=== PATIENT | female | born 1965 | race Caucasian/White ===

== ENCOUNTER 2018-07-31 18:57 | Emergency (ER) | payer MEDICAID, SELFPAY ==
[2018-07-31 19:02] VITALS: BP 142/83; PULSE 69; RESP 16; TEMP 36.7; O2SAT 100
--- NOTE | 2018-07-31 19:29 | W.ED.GENAD ---
Discharge Plan Disposition Patient Disposition: HOME Condition: Stable Discharge Details Chief Complaint: Nk/Back Pain Clinical Impression: Lumbago Primary Care Provider: SARA ONEILL ED Provider: Alli Sanchez Home Meds and New Rx's Prescriptions: New cyclobenzaprine 10 mg tablet 10 mg PO TID Qty: 14 RF: 0 lidocaine [Lidoderm] 1 PATCH patch 1 patch Topical Q24H Qty: 4 RF: 0 No Action ibuprofen 200 MG tablet 600 mg PO PRNRF: 0 Discharge Instructions Instructions: Low Back Strain (ED) Additional Instructions: Please take a maximum of 1000 mg of Tylenol and 600 mg of ibuprofen every 6 hours. Please use a heating pad on your back as often as possible. Please take the Flexeril and a Lidoderm patch as directed. If you notice any worsening of your symptoms, or any new symptoms such as vomiting, diarrhea, fever, chills, shortness of breath, chest pain, numbness, weakness, or fainting , please return immediately to the emergency department for reevaluation. Please follow up with your primary care provider as soon as possible for reassessment and reevaluation. As always, it was a pleasure participating in your medical care today. Stand Alone Forms: Work Release Referrals: SARA ONEILL [Primary Care Provider] - Discharge Data Discharge Date/Time-TO BE ENTERED AT DEPARTURE: 07/31/18 19:50 Medical Decision Making This is a very pleasant 52-year-old female who presents today for evaluation of left lower back pain. It is come on gradually after a day or 2 of lifting and multiple episodes of bending over. It is located in the left lower lumbar region. No concerning red flags of IV drug use, fever, bowel or bladder incontinence, saddle anesthesia, dysuria, hematuria or increase in urinary frequency. Strength and pulses as well as neurologic exam is intact in all extremities. Signs and symptoms clinically inconsistent with dissection, cord compression, or kidney stone. Pain is notably improved with Aleve. Signs and symptoms at this time are clinically consistent with left lower muscle back sprain, we will recommend Flexeril, Lidoderm patch, continue Tylenol and Motrin, and heating pad. We discussed pertinent red flags for which to immediately return and the importance of close follow-up with PCP. I have extensively reviewed the treatment plan and discharge instructions with the patient and their family. I have addressed all patient concerns at this time. The patient and family was made aware of what symptoms to monitor for that would warrant a return to the emergency department. Discussed the plan with the patient and family, they demonstrate verbal understanding and agreement with our assessment and plan at this time. HPI General Date/Time Provider Initiated Documentation: 07/31/18 19:10. HPI Narrative: This is a pleasant 52-year-old female with no sign of significant past medical history who presents today for evaluation of left lower back pain. She states that over the last 2 days she has been lifting and doing a lot of bending over, when she woke up this morning she noticed some mild soreness and stiffness in her back, however throughout the day this is notably worsened. Pain is located in the left lower lumbar region. There is no flank pain or radiation to the anterior groin. She denies any pain extending up the back, or down the legs. She denies any associated numbness, tingling, or weakness. She denies any bowel or bladder incontinence or saddle anesthesia. She denies any chest pain, cough, tearing sensation, headache, fever or chills. She denies any IV or illicit drug use. She does have a history of kidney stones in the past and states this feels nothing like the nature or severity of her kidney stones in the past. She denies any dysuria, hematuria, or increase in urinary frequency. She has no other complaints at this time. She has taken Aleve and has noted that this is significantly improved her symptoms. No other modifying factors. She denies any pertinent family history. Related Data Home Medications Medication Instructions Recorded Confirmed ibuprofen 600 mg PO PRN 12/18/15 cyclobenzaprine 10 mg PO TID #14 tab 07/31/18 lidocaine [Lidoderm] 1 patch TOPICAL Q24H #4 patch 07/31/18 Previous Rx's Medication Instructions Recorded cyclobenzaprine 10 mg PO TID #14 tab 07/31/18 lidocaine [Lidoderm] 1 patch TOPICAL Q24H #4 patch 07/31/18 Allergies Allergy/AdvReac Type Severity Reaction Status Date / Time No Known Allergies Allergy Unverified 07/31/18 19:10 General Stated Complaint: Nk/Back Pain ALISHA: 4 Review of Systems Review of Systems All systems reviewed & are unremarkable except as noted in HPI and below PFSH Social History Smoking/Tobacco Use Status: Current every day Tobacco Type: cigarettes Alcohol Intake: never Drug use: Occasionally Substance use type: marijuana Do you feel safe at home: Yes Do you feel safe in your relationship?: Yes Exam Narrative Exam Narrative: 1.Const: Well-nourished, Well-developed, appearing stated age 2.Eyes: PERRL, no conjunctival injection, and symmetrical lids. 3.ENT: Atraumatic external nose and ears. Moist MM. Neck: Symmetric, trachea midline, No thyromegaly. 4.CVS: +S1/S2, No murmurs or gallops. Peripheral pulses 2+ and equal in all extremities. Brisk capillary refill in all extremities. Dorsalis pedis, posterior tibial, and radial pulses +2 in all extremities 5.RESP: Unlabored respiratory effort. Clear to auscultation bilaterally. No wheezes rales or rhonchi 6.GI: Soft, Nontender/Nondistended, No hepatosplenomegaly. No guarding or rebound. 7.MSK: Normocephalic/Atraumatic, Extremities w/o deformity or ttp No cyanosis or clubbing, Normal movement of all extremities. No midline tenderness to palpation over the CTLS spine. Notable reproducible tenderness on palpation of the left paraspinal lumbar region, as well as mild reproducible tenderness over the left SI joint. Negative straight leg raise. Notable paraspinal spasms bilaterally worse on the left than the right, primarily focused in the lumbar region. Normal ROM in flexion, extension, side bend, and rotation. Patient has +5 out of 5 strength in the lower extremities in dorsiflexion and plantarflexion, knee flexion and extension, hip flexion and extension. There is +2 over 2 dorsalis pedis pulses bilaterally. There is normal sensation to the skin with light touch at the foot, knee, and hip. Normal saddle sensation. Good sensation over the deep sural nerve area bilaterally. Rectal exam deferred. Reflexes are +2 over 4 in the patellar reflex bilaterally. +5 out of 5 strength in the medial, ulnar, radial nerve distribution bilaterally in the hands as well as intact light touch sensation to these dermatomes on the hands 8.Skin: Warm, Dry. No rashes or lesions. 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 Sensation grossly intact, no focal neurologic deficits. All 6 cardinal planes of vision are fully intact. No evidence of rotatory or vertical nystagmus. The patient demonstrated a normal [id number], good dexterity. There was no evidence of dysdiadochokinesia. Patient was able to ambulate without difficulty. There was no wide-based gait. Romberg, and gwjg-ar-[id number] are both normal on testing. Sensation was intact bilaterally as well as muscle strength bilaterally for all extremities. Patient was able to verbalize butter cup with no slurring, or miss pronunciation. 10.Psych: (AAO) x3. Appropriate mood and affect Course Vital Signs Temperature 36.7 C 07/31/18 19:02 Pulse 69 07/31/18 19:02 Respiratory Rate 16 07/31/18 19:02 Blood Pressure 142/83 H 07/31/18 19:02 Pulse Oximetry 100 07/31/18 19:02 Temperature 36.7 C 07/31/18 19:02 Temperature Source Temporal Artery Scan 07/31/18 19:02 Pulse 69 07/31/18 19:02 Respiratory Rate 16 07/31/18 19:02 Respiratory Effort 07/31/18 19:02 Blood Pressure 142/83 H 07/31/18 19:02 Pulse Oximetry 100 07/31/18 19:02 Oxygen Delivery Method Room Air 07/31/18 19:02 Oxygen Flow Rate 0 07/31/18 19:02 Pain Level 6 07/31/18 19:06
[2018-07-31] MEDS: Lidocaine 5% Patch 1 PATCH TP (19:32)
== END 2018-07-31 19:50 | disposition home or self-care (01) ==
LOC: ER 19:47
PROVIDERS: Emergency Provider Student in an Organized Health Care Education/Training Program; PCP Family Medicine
DX: M54.5 Low back pain (principal)
CPT/HCPCS: 99283

== ENCOUNTER 2018-10-03 10:01 | Outpatient (REF) | payer MEDICAID, SELFPAY ==
[2018-10-03 20:24] LABS: Cholesterol 214 mg/dL (50-200); Glucose 85 mg/dL (70-100); HDL Cholesterol 49 mg/dL (40-60); LDL CHOLESTEROL 142 mg/dL (<100); TSH 1.44 uIU/mL (0.358-3.74); Triglyceride 66 mg/dL (30-150)
[2018-10-06 14:23] LABS: Hepatitis C Ab w Rflx HCV PCR Negative (NEGAT)
== END 2018-10-03 10:21 ==
LOC: NCHCN 10:01
PROVIDERS: PCP Family Medicine; Visit Provider Nurse Practitioner Family
DX: R63.4 Abnormal weight loss (principal); Z11.59 Encounter for screening for other viral diseases; Z13.220 Encounter for screening for lipoid disorders
CPT/HCPCS: 80061; 82947; 83721; 86803; 84443

== ENCOUNTER 2019-04-27 12:29 | Outpatient (REF) | payer MEDICAID, SELFPAY ==
[2019-04-27 19:04] LABS: Iron 88 ug/dL (50-170)
[2019-04-27 19:28] LABS: Anion Gap 10.6 mmol/L (3-11); BUN 10 mg/dL (7-18); CO2 26.4 mmol/L (21.0-32.0); CREATININE 0.71 mg/dL (0.55-1.02); Calcium 8.6 mg/dL (8.5-10.1); Chloride 107 mmol/L (98-107); Ferritin 128 ng/mL (8-252); Glucose 88 mg/dL (74-106); Magnesium 1.7 mg/dL (1.8-2.4); Sodium 144 mmol/L (136-145); Vitamin B12 341 pg/mL (193-986)
== END 2019-04-27 12:49 ==
LOC: NCHCN 12:29
PROVIDERS: PCP Family Medicine; Visit Provider Nurse Practitioner Family
DX: M25.50 Pain in unspecified joint (principal)
CPT/HCPCS: 80048; 82607; 82728; 83540; 83735

== ENCOUNTER 2020-10-04 18:09 | Outpatient (REF) | payer MEDICAID, SELFPAY ==
[2020-10-06 13:31] LABS: COVID-19 RT-PCR UVMMC Result Negative (Negative)
== END 2020-10-04 18:10 | disposition home or self-care (01) ==
LOC: NCHCN 18:09
PROVIDERS: PCP Family Medicine; Visit Provider Internal Medicine
DX: Z20.822 Contact with and (suspected) exposure to COVID-19 (principal)
CPT/HCPCS: U0003

== ENCOUNTER 2021-08-16 09:43 | Outpatient (REF) | payer MEDICAID, SELFPAY ==
[2021-08-16 20:30] LABS: Bilirubin Negative (Negative); Blood Negative (Negative); Clarity Cloudy (Clear); Glucose Negative (Negative); Ketones Negative (Negative); Leukocyte Esterase Negative (Negative); Nitrite Negative (Negative); Specific Gravity 1.025 (1.005-1.025)
[2021-08-18 15:27] LABS: Chlamydia Result Negative (Negative); GC Result Negative (Negative)
== END 2021-08-16 09:44 | disposition home or self-care (01) ==
LOC: NCHCN 09:43
PROVIDERS: PCP Physician Assistant; Visit Provider Nurse Practitioner Family
DX: R31.9 Hematuria, unspecified (principal); N89.8 Other specified noninflammatory disorders of vagina
CPT/HCPCS: 87491; 87591; 81003; 87480; 87510; 87660

== ENCOUNTER → 2022-01-23 00:56 | Outpatient (CLI) | payer MEDICAID, SELFPAY ==
--- NOTE | 2022-01-23 08:30 | DI.MRI_ITS ---
Exam(s) MR LUMBAR SPINE WO EXAM: MR LUMBAR SPINE WO CLINICAL HISTORY: CHRONIC LUMBAR BACK PAIN, M54.5; LS RADICULOPATHY, M54.17; ABNL MRI, R93.89. TECHNIQUE: Multiplanar multisequence MRI of the Lumbar spine was performed. COMPARISON: DX XR LS SPINE 2-3 VIEWS from 10/21/2018 FINDINGS: Conus medullaris is at normal level. There is no evidence of conus mass nor subjacent clumping of in trathecal nerve roots to suggest arachnoiditis. The distal thecal sac appears unremarkable.There is no evidence of Tarlov intrasacral cysts nor other significant findings within the sacral canal Bones:There are no fractures nor ominous osseous lesions in the lumbar vertebral bodies and visualize d sacrum. Benign intraosseous hemangiomas are noted in T10 and T12. With respect to the individual levels... T12-L1: Unremarkable L1-2: Normal disc height and signal. No disc herniation nor central canal stenosis.No foraminal steno sis L2-3: Normal disc height. There is a posterolateral left disc herniation at this level which extends posteriorly 4 millimeters and is approximately 1 cm wide. This indents the anterior left side of the thecal sac at this level at the lateral recess. However, this disc protrusion does not extend appre ciably into the ipsilateral exiting left neural foramen. Right neural foramen is clear.No foraminal stenosis.Osseous central canal dimensions are within normal limits. No facet arthropathy evident. L3-4: Normal disc height. Mild central annular bulging without a significant disc herniation. No ce ntral canal stenosis.No foraminal stenosis.No facet arthropathy. L4-5: Normal disc height and signal. No disc herniation nor central canal stenosis. No foraminal st enosis. No facet arthropathy. L5-S1: Normal disc height and signal. No disc herniation. No central canal stenosis. No foraminal stenosis. No facet arthropathy. Soft tissues: paraspinal soft tissues appear unremarkable. IMPRESSION: 1. The main finding here is posterolateral left disc protrusion at L2-3 level as described above. O ccupies the left lateral recess. This indents the anterior left side of the thecal sac at this level . Does not appear to extend appreciably into the exiting left neural foramen. No obvious foraminal stenosis. No facet arthropathy. 2. Benign intraosseous hemangiomas noted anteriorly at T10 and T12. Also L3. No ominous osseous les ions. No compression fractures. DATA REPOSITORY:
== END ==
PROVIDERS: PCP Physician Assistant; Visit Provider Nurse Practitioner Family
DX: M51.26 Other intervertebral disc displacement, lumbar region (principal); D18.09 Hemangioma of other sites
CPT/HCPCS: 72148

== ENCOUNTER 2022-01-29 11:18 | Outpatient (REF) | payer MEDICAID, SELFPAY ==
[2022-01-29 15:17] LABS: Abs Immature Grans 0.07 10^3/uL (0.0-0.06); Absolute Basophil Count 0.09 10^3/uL (0.0-0.2); Absolute Eosinophil Count 0.21 10^3/uL (0.0-0.7); Absolute Lymphocyte Count 4.13 10^3/uL (1.2-3.4); Absolute Monocyte Count 0.91 10^3/uL (0.1-0.8); Basophils % 0.8; Eosinophils % 1.8; HGB 15.6 g/dL (11.2-15.7); Immature Grans % 0.6; Lymphocytes % 35.6; MCH 30.5 pg (27.0-33.0); MCHC 33.2 % (32.0-36.0); MCV 92 fL (80-95); MPV 9.1 fL (8.0-11.0); Monocytes % 7.8; Neutrophils % 53.4; Platelet Count 481 10^3/uL (130-400); RBC 5.11 10^6/uL (3.93-5.22); RDW 13.3 % (11.7-14.6); RDW-SD 45.3 fL; WBC 11.61 10^3/uL (4.4-10.8)
[2022-01-29 16:01] LABS: ALT 28 U/L (14-59); AST 18 U/L (15-37); Albumin 4.5 g/dL (3.4-5.0); Alkaline Phosphatase 91 U/L (46-116); BUN 13 mg/dL (7-18); Bilirubin, Total 0.4 mg/dL (0.2-1.0); CREATININE 0.8 mg/dL (0.55-1.02); Calcium 9.3 mg/dL (8.5-10.1); Calculated LDL 166 mg/dL (<100); Chloride 105 mmol/L (98-107); Cholesterol 254 mg/dL (<200); Glucose 89 mg/dL (74-106); HDL Cholesterol 67 mg/dL (40-60); Potassium 4.3 mmol/L (3.5-5.1); Sodium 142 mmol/L (136-145); TSH (W/Ref FT4) 1.69 uIU/mL (0.36-3.74); Total Protein 7.8 g/dL (6.4-8.2); Triglyceride 109 mg/dL (<150)
== END 2022-01-29 11:19 | disposition home or self-care (01) ==
LOC: NCHCN 11:18
PROVIDERS: PCP Physician Assistant; Visit Provider Nurse Practitioner Family
DX: Z13.220 Encounter for screening for lipoid disorders (principal); R63.4 Abnormal weight loss
CPT/HCPCS: 80053; 80061; 84443; 85025

== ENCOUNTER → 2022-02-27 01:33 | Outpatient (CLI) | payer MEDICAID, SELFPAY ==
--- NOTE | 2022-02-27 08:43 | DI.MAMMO_ITS ---
Exam(s) MAMMO SCREENING EXAM: MAMMO SCREENING CLINICAL HISTORY: SCREENING, Z12.39. TECHNIQUE: Bilateral full field digital CC and MLO mammographic images were obtained with 3D tomosyn thesis and utilizing computer aided detection (CAD). COMPARISON: Prior outside mammograms were reviewed. Most recent being August 2020. FINDINGS: There has been no significant change in the appearance and distribution of the fibroglandular tissue. There are no new spiculated masses nor malignant appearing microcalcification groups. There is no significant architectural distortion nor skin thickening-retraction. IMPRESSION: No radiographic evidence of malignancy. BI-RADS Category 1 - Negative Breast Density - Category B - Scattered areas of fibroglandular density Breast density Category C or D implies that the patient has dense breast tissue. Dense breast tissue can make it harder to find cancer on a mammogram. Dense breast tissue is also associated with an incr eased risk of breast cancer. This information about the result of the mammogram report was provided to the patient to raise their awareness. Use this report when you speak with the patient about their risks for breast cancer, which includes their family history. At that time, you may recommend additional screening tests (Ultrasoun d or MRI) as these tests may add significant information. A negative radiographic report should not delay biopsy if a dominant or clinically suspicious mass is present. Up to ten percent of cancers are not identified on mammography. A negative report may reinforce clinical impression. Adenosis and dense breasts may obscure an underlying neoplasm. False positive reports average 6 to 10%. Patient will receive a letter notifying them of these results.
== END ==
PROVIDERS: PCP Physician Assistant; Visit Provider Nurse Practitioner Family
DX: Z12.31 Encounter for screening mammogram for malignant neoplasm of breast (principal)
CPT/HCPCS: 77063; 77067

== ENCOUNTER 2022-02-27 18:05 | Outpatient (REF) | payer MEDICAID, SELFPAY ==
[2022-02-27 18:13] LABS: Abs Immature Grans 0.05 10^3/uL (0.0-0.06); Absolute Basophil Count 0.07 10^3/uL (0.0-0.2); Absolute Eosinophil Count 0.17 10^3/uL (0.0-0.7); Absolute Lymphocyte Count 3.77 10^3/uL (1.2-3.4); Absolute Monocyte Count 0.99 10^3/uL (0.1-0.8); Absolute Neutrophil Count 5.21 10^3/uL (1.2-6.7); Basophils % 0.7; Eosinophils % 1.7; HCT 43.9 % (36.0-46.0); HGB 14.9 g/dL (11.2-15.7); Immature Grans % 0.5; Lymphocytes % 36.7; MCH 30.7 pg (27.0-33.0); MCHC 33.9 % (32.0-36.0); MCV 90 fL (80-95); MPV 9.9 fL (8.0-11.0); Monocytes % 9.6; Neutrophils % 50.8; Platelet Count 442 10^3/uL (130-400); RBC 4.86 10^6/uL (3.93-5.22); RDW 13.6 % (11.7-14.6); RDW-SD 45.5 fL; WBC 10.26 10^3/uL (4.4-10.8)
== END 2022-02-27 18:06 | disposition home or self-care (01) ==
LOC: NCHCN 18:05
PROVIDERS: PCP Physician Assistant; Visit Provider Nurse Practitioner Family
DX: R63.4 Abnormal weight loss (principal); J32.9 Chronic sinusitis, unspecified
CPT/HCPCS: 85025

== ENCOUNTER 2022-08-20 15:20 | Outpatient (REF) | payer MEDICAID, SELFPAY ==
[2022-08-22 11:08] LABS: Varicella IgG Antibody Positive (See Note)
== END 2022-08-20 15:21 | disposition home or self-care (01) ==
LOC: NCHCN 15:20
PROVIDERS: PCP Physician Assistant; Visit Provider Nurse Practitioner Family
DX: R21 Rash and other nonspecific skin eruption (principal); R23.8 Other skin changes
CPT/HCPCS: 86787

== ENCOUNTER 2023-07-24 16:10 | Outpatient (REF) | payer MEDICAID, SELFPAY ==
[2023-07-24 19:25] LABS: HCT 42.9 % (36.0-46.0); HGB 14.6 g/dL (11.2-15.7); MCH 30.5 pg (27.0-33.0); MCV 90 fL (80-95); MPV 8.9 fL (8.0-11.0); Platelet Count 493 10^3/uL (130-400); RBC 4.79 10^6/uL (3.93-5.22); RDW 12.9 % (11.7-14.6); RDW-SD 42.8 fL; WBC 11.36 10^3/uL (4.4-10.8)
[2023-07-24 19:53] LABS: Iron 76 ug/dL (50-170); Total Iron Binding Capacity 299 ug/dL (250-450); Transferrin Sat 25 % (15-50)
[2023-07-24 20:20] LABS: ALT 19 U/L (14-59); AST 14 U/L (15-37); Alkaline Phosphatase 82 U/L (46-116); Anion Gap 12.9 mmol/L (3-11); BUN 12 mg/dL (7-18); Bilirubin, Total 0.3 mg/dL (0.2-1.0); CO2 23.1 mmol/L (21.0-32.0); CREATININE 0.7 mg/dL (0.55-1.02); Calcium 9.2 mg/dL (8.5-10.1); Chloride 108 mmol/L (98-107); Estimated GFR 102.07 (mL/min/1.73m2); Ferritin 112 ng/mL (8-252); Glucose 93 mg/dL (74-106); Potassium 4.1 mmol/L (3.5-5.1); Sodium 144 mmol/L (136-145); TSH (W/Ref FT4) 1.34 uIU/mL (0.36-3.74); Total Protein 6.8 g/dL (6.4-8.2)
== END 2023-07-24 16:11 | disposition home or self-care (01) ==
LOC: NCHCN 16:10
PROVIDERS: PCP Nurse Practitioner Family; Visit Provider Nurse Practitioner Family
DX: R55 Syncope and collapse (principal)
CPT/HCPCS: 80053; 85027; 82728; 83540; 83550; 84443

== ENCOUNTER 2023-08-08 13:43 | Outpatient (CLI) | payer MEDICAID, SELFPAY | END 2023-08-08 13:44 | disposition home or self-care (01) | PROVIDERS: PCP Nurse Practitioner Family; Visit Provider Nurse Practitioner Family | DX: R55 Syncope and collapse (principal) | CPT/HCPCS: 93246 ==

== ENCOUNTER 2023-08-29 07:57 | Outpatient (CLI) | payer MEDICAID, SELFPAY ==
--- NOTE | 2023-08-29 09:14 | W.CARDEVENT ---
Date of service: 08/29/23 Time of Service: 09:14 Cardiac Event Recorder Referring Provider:: Mary Adams Indications:: syncope Cardiac Event Note: This is a cardiac event monitor. Patient was monitored for 13 days and 6 hours Rhythm throughout was sinus. Average heart rate was 81. Minimum was 48, maximum 145 There were very rare isolated atrial and ventricular ectopic beats There were several self-limited atrial runs. These were generally 4-5 beats in duration, asymptomatic There was no atrial fibrillation, no high-grade AV block, no pauses greater than 3 seconds Symptoms were reported which correlated with sinus rhythm rate 99
== END 2023-08-29 07:58 | disposition home or self-care (01) ==
LOC: CARDOPNVT 07:57
PROVIDERS: PCP Nurse Practitioner Family; Visit Provider Internal Medicine Cardiovascular Disease
DX: R55 Syncope and collapse (principal); I49.1 Atrial premature depolarization

== ENCOUNTER 2024-06-13 04:42 | Emergency (ER) | payer MEDICAID, SELFPAY ==
[2024-06-13] VITALS (21 sets, daily range): BP systolic 104–142; BP diastolic 59–90; PULSE 68–101; RESP 16–74; TEMP 36.7; O2SAT 94–99
[2024-06-13] MEDS: Ondansetron 4 MG/2 ML VIAL IVP (05:06)
[2024-06-13] MEDS: Normal Saline 1,000 ML 1000 ML IV (05:08)
[2024-06-13 05:09] LABS: Abs Immature Grans 0.05 10^3/uL (0.0-0.06); Absolute Basophil Count 0.08 10^3/uL (0.0-0.2); Absolute Eosinophil Count 0.01 10^3/uL (0.0-0.7); Absolute Lymphocyte Count 0.91 10^3/uL (1.2-3.4); Absolute Monocyte Count 1.46 10^3/uL (0.1-0.8); Absolute Neutrophil Count 10.89 10^3/uL (1.2-6.7); Basophils % 0.6 %; Eosinophils % 0.1 %; HCT 45.6 % (36.0-46.0); HGB 15.4 g/dL (11.2-15.7); Immature Grans % 0.4 %; Lymphocytes % 6.8 %; MCH 30.2 pg (27.0-33.0); MCHC 33.8 % (32.0-36.0); MCV 89 fL (80-95); MPV 8.2 fL (8.0-11.0); Monocytes % 10.9 %; Neutrophils % 81.2 %; Platelet Count 446 10^3/uL (130-400); RDW 12.8 % (11.7-14.6); RDW-SD 42.5 fL; WBC 13.41 10^3/uL (4.4-10.8)
--- NOTE | 2024-06-13 05:17 | ED.GENADUL_ITS ---
Discharge Plan Disposition Patient Disposition: Home Condition: Good Discharge Details Clinical Impression: Nausea & vomiting Primary Care Provider: Rainer Mccarthy ED Provider: Alli Sanchez Home Meds and New Rx's Prescriptions: New ondansetron 4 mg tablet,disintegrating 4 mg PO Q8H Qty: 20 0RF No Action albuterol sulfate 90 mcg/actuation HFA aerosol inhaler 2 inh inhalation Q6H Qty: 8.5 0RF fexofenadine [Annette Allergy] 180 mg tablet 180 mg PO DAILY cyclobenzaprine 10 mg tablet 10 mg PO HS PRN acetaminophen 500 mg capsule 1,000 mg PO Q6H PRN albuterol sulfate [ProAir HFA] 90 mcg/actuation HFA aerosol inhaler 1 inh inhalation DIRECTED montelukast 10 mg tablet 10 mg PO DAILY 90 Days Qty: 90 3RF montelukast 10 mg tablet 10 mg PO DAILY 90 Days Qty: 30 3RF bupropion HCl 75 mg tablet 75 mg PO TID Patient Comments: TAKE ONE TABLET BY MOUTH THREE TIMES A DAY Discharge Instructions Instructions: Nausea and Vomiting, Adult ED Additional Instructions: At this time your results have returned reassuring. You have been rehydrated. Please take the Zofran as needed for nausea. I suspect that the cause of your symptoms was a viral illness based on your current exam. If you notice any worsening of your symptoms, or any new symptoms such as vomiting, diarrhea, fever, chills, shortness of breath, chest pain, numbness, weakness, or fainting , please return immediately to the emergency department for reevaluation. Please follow up with your primary care provider as soon as possible for reassessment and reevaluation. As always, it was a pleasure participating in your medical car e today. Referrals: Rainer Mccarthy [Primary Care Provider] - [facility] General Date/Time Provider Initiated Documentation: 06/13/24 04:46 . HPI Narrative: 58-year-old female with a past medical history of laparoscopy, C- sections, previous kidney stones, reactive airway disease, presents today for evaluation of nausea and vomiting. Patient states that about 24 hours ago she had mild aches and chills, and then at around 10 PM last evening she had multiple episodes of nausea vomiting dry heaving that just will not stop. She has not eaten anything in about 24 to 30 hours. No blood in her vomit. No diarrhea. She is having flatus. She denies any current fever. She denies any chest pain or significant shortness of breath. No tearing or ripping sensation in the chest. No bandlike sensation around the chest. No other complaints at this time. No other modifying factors. Currently no other sick contacts at home. Related Data Home Medications ?Medication ?Instructions ?Recorded ?Confirmed acetaminophen 500 mg capsule 1,000 mg PO Q6H PRN 12/14/20 06/13/24 cyclobenzaprine 10 mg tablet 10 mg PO HS PRN 12/14/20 06/13/24 albuterol sulfate 90 mcg/actuation 2 inh inhalation Q6H #8.5 grams 05/01/22 06/13/24 aerosol inhaler albuterol sulfate 90 mcg/actuation 1 inh inhalation DIRECTED 08/23/22 06/13/24 aerosol inhaler (ProAir HFA) montelukast 10 mg tablet 10 mg PO DAILY 90 days #90 tabs 07/24/23 06/13/24 fexofenadine 180 mg tablet 180 mg PO DAILY 03/20/24 06/13/24 (Annette Allergy) montelukast 10 mg tablet 10 mg PO DAILY 90 days #30 tabs 03/27/24 06/13/24 bupropion HCl 75 mg tablet 75 mg PO TID 06/13/24 06/13/24 ondansetron 4 mg disintegrating 4 mg PO Q8H #20 tabs 06/13/24 tablet Previous Rx's ?Medication ?Instructions ?Recorded albuterol sulfate 90 mcg/actuation 2 inh inhalation Q6H #8.5 grams 05/01/22 aerosol inhaler montelukast 10 mg tablet 10 mg PO DAILY 90 days #90 tabs 07/24/23 montelukast 10 mg tablet 10 mg PO DAILY 90 days #30 tabs 03/27/24 ondansetron 4 mg disintegrating 4 mg PO Q8H #20 tabs 06/13/24 tablet Allergies Allergy/AdvReac Type Severity Reaction Status Date / Time gabapentin Allergy Other (See Verified 06/13/24 04:53 Comment) General Stated Complaint: Nausea/Vomit/Diar ALISHA: 3 Exam Narrative Exam Narrative: 1.Const: Well-nourished, Well-developed, appearing stated age 2.Eyes: PERRL, no conjunctival injection, and symmetrical lids. 3.ENT: Atraumatic external nose and ears. Notably dry MM. Neck: Symmetric, trachea midline, No thyromegaly. 4.CVS: +S1/S2, Peripheral pulses 2+ and equal in all extremities. Brisk capillary refill in all extremities. 5.RESP: Unlabored respiratory effort. Clear to auscultation bilaterally. No wheezes rales or rhonchi 6.GI: Soft, Nontender/Nondistended, No hepatosplenomegaly. No guarding or rebound. 7.MSK: Normocephalic/Atraumatic, Extremities w/o deformity or ttp No cyanosis or clubbing, Normal movement of all extremities 8.Skin: Warm, Dry. No rashes or lesions. 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 Sensation grossly intact, no focal neurologic deficits. 10.Psych: (AAO) x3. Appropriate mood and affect Course Vital Signs Vital signs: Vital Signs Pulse 87 06/13/24 04:46 Respiratory Rate 74 H 06/13/24 04:46 Blood Pressure 142/90 H 06/13/24 04:46 Pulse Oximetry 98 06/13/24 04:46 Temperature Source Temporal Artery Scan 06/13/24 04:49 Pulse 87 06/13/24 04:49 Respiratory Rate 74 H 06/13/24 04:49 Blood Pressure 142/90 H 06/13/24 04:49 Blood Pressure Position Sitting 06/13/24 04:49 Pulse Oximetry 98 06/13/24 04:49 Oxygen Delivery Method Room Air 06/13/24 04:49 Oxygen Flow Rate 0 06/13/24 04:49 Pain Level 0 06/13/24 04:49 Lab/Test Results Lab/Test Results: Laboratory Tests Range/Units 06/13/24 05:01 WBC (4.4-10.8) 10^3/uL 13.41 H RBC (3.93-5.22) 10^6/uL 5.10 Hgb (11.2-15.7) g/dL 15.4 Hct (36.0-46.0) % 45.6 MCV (80-95) fL 89 MCH (27.0-33.0) pg 30.2 MCHC (32.0-36.0) % 33.8 RDW (11.7-14.6) % 12.8 Plt Count (130-400) 10^3/uL 446 H MPV (8.0-11.0) fL 8.2 Immature Gran % % 0.4 Neutrophils % % 81.2 Lymphocytes % % 6.8 Monocytes % % 10.9 Eosinophils % % 0.1 Basophils % % 0.6 Nucleated RBC % (0.0-0.3) % 0.0 Absolute Neutrophils (1.2-6.7) 10^3/uL 10.89 H Absolute Lymphocytes (1.2-3.4) 10^3/uL 0.91 L Absolute Monocytes (0.1-0.8) 10^3/uL 1.46 H Absolute Eosinophils (0.0-0.7) 10^3/uL 0.01 Absolute Basophils (0.0-0.2) 10^3/uL 0.08 Medical Decision Making 58-year-old female with a past medical history of laparoscopy, C- sections, previous kidney stones, reactive airway disease, presents today for evaluation of nausea and vomiting. Patient states that about 24 hours ago she had mild aches and chills, and then at around 10 PM last evening she had multiple episodes of nausea vomiting dry heaving that just will not stop. She has not eaten anything in about 24 to 30 hours. No blood in her vomit. No diarrhea. She is having flatus. She denies any current fever. She denies any chest pain or significant shortness of breath. No tearing or ripping sensation in the chest. No bandlike sensation around the chest. No other complaints at this time. No other modifying factors. Currently no other sick contacts at home. Exam demonstrates dry mucous membranes, no hypotension or shock. No abdominal epigastric or right upper quadrant or right lower quadrant tenderness. Differential is highest for viral etiology, however pancreatitis is on the differential but less likely. No recent alcohol intake. No chest pain or tightness to suggest ACS. No hematemesis to suggest GI bleed, Boerhaave's tear or Blaire-Hebert tear. No other concerning components on history or physical exam. No evidence of an acute surgical abdomen whatsoever. We will rehydrate, give Zofran check labs, monitor closely and reassess. 6:27 AM On reassessment patient is feeling much better, nausea has resolved. She does have very mild white count of 13, no bandemia. Repeat abdominal exam shows no abdominal tenderness whatsoever or signs of an acute surgical abdomen. Electrolytes normal. COVID flu and RSV negative. Lipase normal. Patient was given a p.o. trial and tolerated this well. She feels well and would like to go home. Patient will be given Zofran for home use. Symptoms appear consistent with mild viral enteritis, potential norovirus. No evidence at this time to suggest ACS, cholecystitis, or appendicitis. No evidence to suggest acute mesenteric ischemia. Patient will be discharged. Discussed red flags which return. I have extensively reviewed the treatment plan and discharge instructions with the patient. I have addressed all patient concerns at this time. The patient was made aware of what symptoms to monitor for that would warrant a return to the emergency department. Discussed the plan with the patient, they demonstrate verbal understanding and agreement with our assessment and plan at this time. The documentation in this chart was dictated using [employer] dictation software. Please excuse any dictation errors. Quality:SDOH Health Related Social Needs: No Data to Display PFSH All Active Problems (Updated 06/13/24 @ 06:30 by Alli Sanchez DO) Nausea & vomiting (Acute) Nasal turbinate hypertrophy (Acute) Nasal valve stenosis (Acute) Chronic rhinitis (Acute) Hx of laparoscopy (Chronic) Hx of section (Chronic) Kidney infection (Acute) Kidney stones (Chronic) Sore throat (Acute) Ear pain, right (Acute) Tobacco use (Acute) Carpal tunnel syndrome (Acute) Osteoarthritis (Chronic) Lumbar back pain (Acute) Weight loss (Acute) Joint pain (Acute) Arthropathy of hip (Acute) Insomnia (Acute) Shoulder impingement syndrome (Acute) Nasal septal spur (Acute) Deviated nasal septum (Acute) Medical History (Updated 06/13/24 @ 06:30 by Alli Sanchez DO) Chronic sinusitis Abnormal MRI Lumbosacral radiculopathy Ruptured disk Screening for breast cancer Shingles Rash and other nonspecific skin eruption Surgical History (Updated 08/23/22 @ 08:58 by Claudia Martinez) History of hysterectomy Family History Other Hypertension Kidney infection Kidney stones Myocardial infarction Social History (Reviewed 05/01/22 @ 10:46 by Sam Burton Smoking/Tobacco Use Status: Current every day Tobacco Type: cigarettes Smoking packs per day: 1 Smoking cigarettes per day: 20.0 Smoking risk assessment performed?: Yes Alcohol Intake: never Drug use: Occasionally Substance use type: marijuana Number of Children: 3 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
[2024-06-13 05:29] LABS: ALT 33 U/L (14-59); AST 19 U/L (15-37); Albumin 4.2 g/dL (3.4-5.0); Alkaline Phosphatase 82 U/L (46-116); Anion Gap 7.1 mmol/L (3-11); BUN 12 mg/dL (7-18); Bilirubin, Total 0.37 mg/dL (0.2-1.0); CO2 25.9 mmol/L (21.0-32.0); CREATININE 0.8 mg/dL (0.55-1.02); Calcium 9.1 mg/dL (8.5-10.1); Chloride 106 mmol/L (98-107); Estimated GFR 86.42 (mL/min/1.73m2); Glucose 117 mg/dL (74-106); Lipase 20 U/L (<78); Potassium 3.8 mmol/L (3.5-5.1); Sodium 139 mmol/L (136-145); Total Protein 7.6 g/dL (6.4-8.2)
[2024-06-13 05:55] LABS: COVID-19 PCR Negative (Negative); Influenza A PCR Negative (Negative); Influenza B PCR Negative (Negative); RSV PCR Negative (Negative)
[2024-06-13 05:57] LABS: Source Nasopharynx
[2024-06-13] MEDS: Ondansetron O.D.T. 4 MG TABEF, 3 TABS/BTL PO (06:44)
== END 2024-06-13 07:05 | disposition home or self-care (01) ==
PROVIDERS: Emergency Provider Student in an Organized Health Care Education/Training Program; PCP Student in an Organized Health Care Education/Training Program
DX: R11.2 Nausea with vomiting, unspecified (principal); M79.10 Myalgia, unspecified site; F17.210 Nicotine dependence, cigarettes, uncomplicated
CPT/HCPCS: 36415; 80053; 83690; 87637; 96361; 96374; 99284; 85025; J2405

== ENCOUNTER 2024-11-03 17:40 | Outpatient (REF) | payer MEDICAID, SELFPAY ==
[2024-11-03 19:12] LABS: Abs Immature Grans 0.05 10^3/uL (0.0-0.06); HCT 42.6 % (36.0-46.0); HGB 14.1 g/dL (11.2-15.7); Immature Grans % 0.5 %; MCH 30.2 pg (27.0-33.0); MCHC 33.1 % (32.0-36.0); MCV 91 fL (80-95); MPV 9.0 fL (8.0-11.0); Platelet Count 478 10^3/uL (130-400); RBC 4.67 10^6/uL (3.93-5.22); RDW 13.6 % (11.7-14.6); RDW-SD 46.3 fL; WBC 9.41 10^3/uL (4.4-10.8)
[2024-11-03 19:25] LABS: Calculated LDL 180 mg/dL (<100); Cholesterol 271 mg/dL (<200); HDL Cholesterol 47 mg/dL (>or=50); Triglyceride 220 mg/dL (<150)
[2024-11-03 19:45] LABS: Hemoglobin A1C 4.9 % (<5.7)
== END 2024-11-03 17:41 | disposition home or self-care (01) ==
LOC: NCHCN 17:40
PROVIDERS: PCP Student in an Organized Health Care Education/Training Program; Visit Provider Student in an Organized Health Care Education/Training Program
DX: R79.89 Other specified abnormal findings of blood chemistry (principal); Z13.1 Encounter for screening for diabetes mellitus; E78.5 Hyperlipidemia, unspecified
CPT/HCPCS: 80061; 83036; 85025

== ENCOUNTER 2024-12-03 02:02 | Outpatient (CLI) | payer MEDICAID, SELFPAY ==
--- NOTE | 2024-12-03 | DI.DEXA_ITS ---
Exam(s) XR DEXA BONE DENSITY W/WO MAYO EXAM: XR DEXA BONE DENSITY W/WO MAYO CLINICAL HISTORY: Asymp Post-Zonia state Z78.0 hx of Endo and uterine Cancer, smoker TECHNIQUE: Blume Distillation Horizon C densitometer analysis of left hip, lumbar spine and left forearm. Lateral survey image of the thoracic and lumbar spine. COMPARISON: No exams were available for comparison FINDINGS: Lateral view of the thoracic and lumbar spine shows no evidence of compression fractures. Bone mineral density measurements of the lumbar spine correspond to a total T- score of -3.3, in the osteoporotic range. Bone mineral density measurements of the left hip correspond to a total T-score of -2.4. The femoral neck T-score is -3.2, in the osteoporotic range.. Theleft forearm bone mineral density measurements correspond to a T-score of the distal 3rd of -3.4, in the osteoporotic range.. IMPRESSION: Osteoporosis of the spine, hip and forearm.
--- NOTE | 2024-12-03 | DI.MAMMO_ITS ---
Exam(s) MAMMO SCREENING EXAM: MAMMO SCREENING CLINICAL HISTORY: SCREENING MAMMO Z12.31. TECHNIQUE: Bilateral full field digital CC and MLO mammographic images were obtained with 3D tomosynthesis and utilizing computer aided detection (CAD). COMPARISON: Prior mammograms were reviewed. FINDINGS: There has been no significant change in the appearance and distribution of the fibroglandular tissue. No CAD designations. There are no new spiculated masses nor malignant appearing microcalcification groups. There is no significant architectural distortion nor skin thickening-retraction. IMPRESSION: No radiographic evidence of malignancy. BI-RADS Category 1 - Negative Breast Density - Category B - There are scattered areas of fibroglandular density. Breast density Category C or D implies that the patient has dense breast tissue. Dense breast tissue can make it harder to find cancer on a mammogram. Dense breast tissue is also associated with an increased risk of breast cancer. This information about the result of the mammogram report was provided to the patient to raise their awareness. Use this report when you speak with the patient about their risks for breast cancer, which includes their family history. At that time, you may recommend additional screening tests (Ultrasound or MRI) as these tests may add significant information. A negative radiographic report should not delay biopsy if a dominant or clinically suspicious mass is present. Up to ten percent of cancers are not identified on mammography. A negative report may reinforce clinical impression. Adenosis and dense breasts may obscure an underlying neoplasm. False positive reports average 6 to 10%. Patient will receive a letter notifying them of these results.
== END 2024-12-03 02:22 ==
PROVIDERS: PCP Student in an Organized Health Care Education/Training Program; Visit Provider Student in an Organized Health Care Education/Training Program
DX: Z12.31 Encounter for screening mammogram for malignant neoplasm of breast (principal); Z78.0 Asymptomatic menopausal state; M81.0 Age-related osteoporosis without current pathological fracture
CPT/HCPCS: 77063; 77067; 77080

== ENCOUNTER 2025-01-01 01:07 | Outpatient (CLI) | payer MEDICAID, SELFPAY ==
[2025-01-01 17:55] LABS: Vitamin D 25 Total 22 ng/mL (30-100)
== END 2025-01-01 01:08 | disposition home or self-care (01) ==
LOC: LBO 01:07
PROVIDERS: PCP Student in an Organized Health Care Education/Training Program; Visit Provider Student in an Organized Health Care Education/Training Program
DX: M81.8 Other osteoporosis without current pathological fracture (principal)
CPT/HCPCS: 36415; 82306; 82330

== ENCOUNTER 2025-01-14 14:59 | Outpatient (REF) | payer MEDICAID, SELFPAY ==
[2025-01-14 19:07] LABS: AST 21 U/L (15-37); Albumin 4.1 g/dL (3.4-5.0); Alkaline Phosphatase 93 U/L (46-116); Anion Gap 8.3 mmol/L (3-11); BUN 7 mg/dL (7-18); Bilirubin, Total 0.4 mg/dL (0.2-1.0); CO2 27.7 mmol/L (21.0-32.0); Calcium 9.0 mg/dL (8.5-10.1); Chloride 107 mmol/L (98-107); Estimated GFR 100.81 (mL/min/1.73m2); Glucose 84 mg/dL (74-106); Magnesium 2.1 mg/dL (1.8-2.4); Potassium 4.5 mmol/L (3.5-5.1); Sodium 143 mmol/L (136-145); Total Protein 6.7 g/dL (6.4-8.2)
[2025-01-14 19:32] LABS: ALT 38 U/L (14-59)
== END 2025-01-14 15:00 | disposition home or self-care (01) ==
LOC: NCHCN 14:59
PROVIDERS: PCP Student in an Organized Health Care Education/Training Program; Visit Provider Student in an Organized Health Care Education/Training Program
DX: E83.51 Hypocalcemia (principal); R14.0 Abdominal distension (gaseous)
CPT/HCPCS: 80053; 83735; 83970; 84100

== ENCOUNTER 2025-01-27 03:27 | Outpatient (CLI) | payer MEDICAID, SELFPAY ==
--- NOTE | 2025-01-27 15:20 | DI.CTLCSR_ITS ---
Exam(s) CT CHEST LUNG CANCER SCREEN EXAM: CT CHEST LUNG CANCER SCREEN CLINICAL HISTORY: NICOTINE DEPENDENCE F17.210 CIGARETTES LUNG SCREENING TECHNIQUE: Imaging Protocol: Axial computed tomography images with coronal and sagittal reformatted images were created and reviewed. Low dose screening protocol. COMPARISON: CR XR DEXA BONE DENSITY W/WO MAYO from 12/03/2024 FINDINGS: Tracheobronchial tree: No bronchiectasis or mucus plugging. Mediastinum and Kathy: No dominant adenopathy or fluid collection. Pulmonary parenchyma: No consolidation or dominant measurable mass. Minimal emphysematous changes. Mild apical scarring. No significant interstitial changes. Lung Nodules: None. Pleura: No effusion. No pneumothorax. Heart: The heart is not dilated. Minimal coronary artery calcifications are seen. No pericardial effusion. Aorta: Thoracic aorta non-dilated. Minimal atherosclerotic calcifications. Upper abdomen: Unremarkable. Bones: There is a mild T8 compression fracture. There are mild degenerative changes in the thoracic spine. Soft Tissues: Unremarkable. IMPRESSION: No suspicious pulmonary nodules. Lung RADS Cat 1 - Negative: No nodules and definitely benign nodules Lung-RADS 1.0 CATEGORIES: Category 0 - Prior chest CT exam(s) being located for comparison. Category 1 - Annual screening in 12 months. No nodules or definitely benign nodules. Category 2 - Annual screening in 12 months. Benign appearance. Nodules with low likelihood of becoming active cancer. Category 3 - 6-month follow-up. Probably benign. Short-term follow-up suggested. Nodules with low likelihood of becoming active cancer. Category 4A - 3-month follow-up and CT/PET if >8 mm in size. Suspicious finding. Findings which require additional testing. Category 4B - Findings which require additional testing and tissue sampling. Category 4X - Category 3 or 4 nodules with additional features or imaging findings that increases the suspicion of malignancy. Modifier S- Potentially clinically significant findings (non lung cancer) RADIATION DOSE DELIVERED: Total DLP DATA REPOSITORY: All CT scans at this facility are submitted to the National Radiology Data Registry (NRDR) Dose Index Registry (DIR) with the [employer] ([employer]). RADIATION OPTIMIZATION: All CT scans at this facility use at least one of these dose optimization techniques: automated exposure control; mA and/or kV adjustment per patient size (includes targeted exams where dose is matched to clinical indication); or iterative reconstruction.
== END 2025-01-27 03:47 ==
LOC: DI 03:27
PROVIDERS: PCP Student in an Organized Health Care Education/Training Program; Visit Provider Student in an Organized Health Care Education/Training Program
DX: Z12.2 Encounter for screening for malignant neoplasm of respiratory organs (principal)
CPT/HCPCS: 71271